=== PATIENT | female | born 2000 | race Caucasian/White ===

== ENCOUNTER 2024-03-18 07:30 | Day surgery (SDC) | payer OTHER ==
[~2024-03-18] VITALS: Ht 160 cm; Wt 112.9 kg
[~2024-03-18 07:30] MED LIST: LR 1,000 ML IV SCH; Ondansetron 4 MG/2 ML VIAL IV PRN
[2024-03-18] MEDS ORDERED: COLESTID 1GM1 G PO (08:04)
[2024-03-18] MEDS ORDERED: BENTYL 20MG20 MG/TAB PO (08:05)
[2024-03-18] MEDS ORDERED: PRIL40 PO (08:06)
[2024-03-18 08:27] VITALS: BP 129/76; PULSE 71; TEMP 97.8
[2024-03-18] MEDS ORDERED: Glycopyrrolate 0.2 MG/ML 1 ML VIAL ONE (09:17)
[2024-03-18 09:50] VITALS: BP 129/76; PULSE 72; TEMP 97.8
--- NOTE | 2024-03-18 10:35 | NUR ---
Pt returned via cart to recliner in [place] [address] at 0950. Pt drowsy but oriented and able to ambulate with staff at sides. VSS-see flowsheet. Pt able to tolerate oral intake. Dr Collins in to visit with pt post procedure. IV removed and pressure dressing applied. After pt dressing, pt taken via wheelchair to private vehicle for dc home with friend Sreekanth to drive.
== END 2024-03-18 10:35 | disposition home or self-care (01) ==
LOC: SDCO 07:30
DX: K52.9 Noninfective gastroenteritis and colitis, unspecified (principal); K21.9 Gastro-esophageal reflux disease without esophagitis; R15.2 Fecal urgency; Z79.899 Other long term (current) drug therapy
CPT/HCPCS: J2704; J7120